=== PATIENT | male | born 1980 | race Caucasian/White ===

== ENCOUNTER 2018-01-05 13:01 | Emergency (ER) | payer OTHER ==
[~2018-01-05] VITALS: Ht 175.3 cm; Wt 73.2 kg
[2018-01-05 13:05] VITALS: TEMP 36.8; Ht 175.3 cm; Wt 73.2 kg
--- NOTE | 2018-01-05 13:39 | DIAGNOSTIC IMAGING REPORT ---
CHEST ONE VIEW PORTABLE CLINICAL HISTORY: 37 years-old Male presenting with swallowed sharp metal. TECHNIQUE: Portable upright AP view of the chest was obtained. COMPARISON: None. FINDINGS: No radiopaque foreign body. Cardiomediastinal silhouette normal. Lungs and pleural spaces clear. Osseous structures normal. Upper abdomen normal. IMPRESSION: 1. No radiopaque foreign body. No acute cardiopulmonary disease. Electronically signed by: Felix Busby M.D. 01/05/2018 1:38 PM Dictated Date/Time: 01/05/2018 1:37 PM
--- NOTE | 2018-01-05 13:40 | DIAGNOSTIC IMAGING REPORT ---
KUB CLINICAL HISTORY: swallowed a sharp piece of metal foreign body COMPARISON STUDY: No previous studies for comparison. FINDINGS: A linear metallic foreign body is identified within the mid a sending colon. This measures 3.5 x 0.3 cm. This may represent a nail fragment. No additional foreign bodies are identified. Bowel pattern is nonobstructive. IMPRESSION: Linear metallic foreign body within the mid a sending colon The above report was generated using voice recognition software. It may contain grammatical, syntax or spelling errors. Electronically signed by: Silverio Pavon M.D. 01/05/2018 1:39 PM Dictated Date/Time: 01/05/2018 1:37 PM
--- NOTE | 2018-01-05 13:46 | EMERGENCY ROOM VISIT NOTE ---
History Report prepared by Papito: Judith Valdes Under the Supervision of: Dr. Ajay Valente M.D. First contact with patient: 13:09 Chief Complaint: FOREIGNBODY ANY BODY PART Stated Complaint: SWALLOWED A SMALL SHARPENED PIECE OF METAL History of Present Illness The patient is a 37 year old male who presents to the Emergency Room with complaints of LUQ abdominal pain after ingesting a foreign body at about 3:30am yesterday morning. The patient is currently incarcerated at [facility]. He admits that he was having some suicidal thoughts and swallowed a piece of metal yesterday in an attempt to harm himself. He states that it was a sharp piece of metal about 2 inches long that he obtained from a hernia belt. About 12 hours after he swallowed the object, he reports intermittent episodes of hemoptysis. He then developed 8.5/10 pain in his epigastrium that then shifted into his LUQ. He states that his pain has been a constant 8.5/10 in the LUQ since yesterday evening. The patient had a bowel movement and could not find the metal object in his stool. He reports that he "lynched" himself with a bedsheet to be put on suicide watch so that he could be evaluated for swallowing this metal object. The patient states that he regrets swallowing the object in an attempt to harm himself. Source of History: patient Onset: yesteray morning Position: abdomen Symptom Intensity: 8.5/10 Timing: constant Modifying Factors (Worsening): other (foreign body) Note: Pt reports hemoptysis. Review of Systems See HPI for pertinent positives & negatives. A total of 10 systems reviewed and were otherwise negative. Past Medical & Surgical Medical Problems: (1) No known health problems Family History Patient reports no known family medical history. Social History Smoking Status: Current Every Day Smoker Housing Status: other (incarcerated) Occupation Status: other (incarcerated) Current/Historical Medications Unable to Obtain Active Prescriptions or Reported Meds Physical Exam Vital Signs Date Time Temp Pulse Resp B/P (MAP) Pulse Ox O2 Delivery O2 Flow Rate FiO2 01/05/18 15:40 82 16 134/83 98 01/05/18 13:30 70 18 96 Room Air 01/05/18 13:05 36.8 85 18 142/81 98 Room Air Physical Exam GENERAL: Patient is in no acute distress. HEENT: No acute trauma, normocephalic atraumatic, mucous membranes moist, no nasal congestion, no scleral icterus. NECK: No stridor, no adenopathy, no meningismus, trachea is midline. LUNGS: Clear to auscultation bilaterally, no wheeze, no rhonchi, breath sounds equal. HEART: Without murmurs gallops or rubs, regular rate and rhythm. ABDOMEN: Soft, nontender, bowel sounds positive, no hernias, no peritonitis. EXTREMITIES: No cyanosis or edema, full range of motion of all the joints without pain or difficulty, no signs for acute trauma. NEUROLOGIC: Oriented x 3, no acute motor or sensory deficits, no focal weakness. SKIN: No rash, no jaundice, no diaphoresis. Medical Decision & Procedures ER Provider Diagnostic Interpretation: Radiology results as stated below per my review and radiologist interpretation: KUB CLINICAL HISTORY: swallowed a sharp piece of metal foreign body COMPARISON STUDY: No previous studies for comparison. FINDINGS: A linear metallic foreign body is identified within the mid a sending colon. This measures 3.5 x 0.3 cm. This may represent a nail fragment. No additional foreign bodies are identified. Bowel pattern is nonobstructive. IMPRESSION: Linear metallic foreign body within the mid a sending colon The above report was generated using voice recognition software. It may contain grammatical, syntax or spelling errors. Electronically signed by: Silverio Pavon M.D. 01/05/2018 1:39 PM Dictated Date/Time: 01/05/2018 1:37 PM CHEST ONE VIEW PORTABLE CLINICAL HISTORY: 37 years-old Male presenting with swallowed sharp metal. TECHNIQUE: Portable upright AP view of the chest was obtained. COMPARISON: None. FINDINGS: No radiopaque foreign body. Cardiomediastinal silhouette normal. Lungs and pleural spaces clear. Osseous structures normal. Upper abdomen normal. IMPRESSION: 1. No radiopaque foreign body. No acute cardiopulmonary disease. Electronically signed by: Felix Busby M.D. 01/05/2018 1:38 PM Dictated Date/Time: 01/05/2018 1:37 PM ED Course 1309: The patient was evaluated in room C2B. A complete history and physical exam was performed. 1402: I discussed the case with Dr. Rivera of GI. He felt that the patient could return to pen[facility]iary and recommended follow-up x-rays in a week. 1421: I spoke with the medical physician at [facility]. He will follow-up with the patient. 1445: I reassessed the patient at this time. I discussed the results and treatment plan with the patient. I answered all pertaining questions that he had. He expressed understanding and verbalized agreement. The patient will be discharged back to [facility]. Medical Decision Differential diagnoses includes esophageal, gastric, small bowel, or large bowel foreign body; suicidal ideation, GI bleeding. Patient presents after ingesting a metallic foreign body yesterday. Films of the chest show no evidence for foreign debris, and the lungs are clear. There was no free air. KUB shows a linear metallic foreign body in the ascending colon. The patient is not febrile or toxic, he does not have peritonitis. There has been no rectal bleeding. I did discuss the case with GI. The patient was seen by GI in the ED. He is being [facility] back [facility] the [facility]. The piece of metal should pass naturally over time, a repeat x-ray in a few days was suggested. Patient can be returned here for increasing pain, fever or bloody bowel movements. Medication Reconcilliation Current Medication List: was personally reviewed by me Blood Pressure Screening Patient's blood pressure: Elevated blood pressure Blood pressure disposition: Elevated BP felt to be situational Consults Time Called: [id number] Consulting Physician: Dr. Rivera Returned Call: [phone] I discussed the case with Dr. Rivera of GI. He felt that the patient could return to penitentiary and recommended follow-up x-rays in a week. Additional Consults: Time Called: 1416 Consulted Physician: [facility] Returned Call: [phone] Additional Comments: I spoke with the medical physician at [facility]. He will follow-up with the patient. Impression Primary Impression: Ingestion of foreign body Scribe Attestation The scribe's documentation has been prepared under my direction and personally reviewed by me in its entirety. I confirm that the note above accurately reflects all work, treatment, procedures, and medical decision making performed by me. Departure Information Dispostion Home / Self-Care Prescriptions Unable to Obtain Active Prescriptions or Reported Meds Referrals [facility] (PCP) Forms HOME CARE DOCUMENTATION FORM, IMPORTANT VISIT INFORMATION, WORK / SCHOOL INSTRUCTIONS Patient Instructions My [facility] [address] Additional Instructions xray to be done in about a week to ensure passage of the foreign body return to ER for severe abdominal pain, bloody stool, fever xray showed the foreign body to be in the ascending colon
[2018-01-05 15:40] VITALS: BP 134/83; PULSE 82; O2SAT 98
== END 2018-01-05 15:26 | disposition home or self-care (01) ==
LOC: C.EDB 13:03 → C.EDC 15:26
DX: T18.9XXA Foreign body of alimentary tract, part unspecified, initial encounter (principal); X58.XXXA Exposure to other specified factors, initial encounter; F17.200 Nicotine dependence, unspecified, uncomplicated